=== PATIENT | female | born 1960 | race Caucasian/White ===

== ENCOUNTER 2019-03-09 17:09 | Emergency (ER) | payer OTHER ==
[~2019-03-09] VITALS: Ht 172.7 cm; Wt 97.5 kg
--- OUTSIDE RECORDS SUMMARY | 2019-03-09 17:16 | XMS REPORT | Continuity of Care Document ---
Author Organization Unknown Address Unknown Allergies There is no data. Medications There is no data. Problems There is no data. Procedures There is no data. Results There is no data. Encounters ACCT No. Visit Date/Time Discharge Status Pt. Type Provider Facility Loc./Unit Complaint [id number] 08/21/2015 16:45:56 08/21/2015 23:59:59 [facility] Outpatient Dallin Schafer
[2019-03-09] MEDS ORDERED: HYDROcodone/APAP 5 MG/325 MG (LORTAB) TAB PO ONE (17:30)
[2019-03-09] MEDS ORDERED: HYDR-4226 PO (17:47)
--- NOTE | 2019-03-09 17:47 | ED Lower Extremity ---
General Chief Complaint: Lower Extremity Stated Complaint: R KNEE INJ Nursing Triage Note: PT TO [facility] 5 BY WHEELCHAIR WITH COMPLAINT OF RIGHT LEG INJURY. PT STATES SHE WAS WALKING ON WET SIDEWALK WHEN SHE SLIPPED AND LANDED ON RIGHT KNEE. STATES SHE CANNONT BEND KNEE. Nursing Sepsis Screen: No Definite Risk Source: patient Exam Limitations: no limitations History of Present Illness Date Seen by Provider: March 09, 2019 Time Seen by Provider: 17:43 Initial Comments To ER with reports of right knee pain. This began after she slipped on a wet garrett ewalk falling onto a flexed right knee. This occurred just prior to arrival. Onset: just prior to arrival Severity: moderate Pain/Injury Location: right knee Method of Injury: fell Modifying Factors: Worse With Movement Allergies and Home Medications Allergies Coded Allergies: Penicillins (Verified Allergy, Unknown, 03/09/19) Patient Home Medication List Home Medication List Reviewed: Yes Review of Systems Constitutional: see HPI EENTM: see HPI Respiratory: no symptoms reported Cardiovascular: no symptoms reported Genitourinary: no symptoms reported Musculoskeletal: see HPI Skin: no symptoms reported Psychiatric/Neurological: No Symptoms Reported Past Oqwwuga-Gnyuwa-Elzcxn Hx Patient Social History Alcohol Use: Denies Use Recreational Drug Use: No Smoking Status: Never a Smoker Recent Foreign Travel: No Contact w/Someone Who Travel: No Recent Infectious Disease Expo: No Recent Hopitalizations: No Immunizations Up To Date Tetanus Booster (TDap): Unknown Seasonal Allergies Seasonal Allergies: No Past Medical History Surgeries: Yes (right shoulder) Orthopedic Respiratory: No Cardiac: No Neurological: No Genitourinary: No Gastrointestinal: No Musculoskeletal: No Endocrine: No HEENT: No Cancer: No Psychosocial: No Integumentary: No Blood Disorders: No Physical Exam Vital Signs Vital Signs - First Documented 03/09/19 17:09 Temp 98.5 Pulse 96 Resp 18 B/P (MAP) 132/97 (109) Pulse Ox 96 O2 Delivery Room Air Capillary Refill : Less Than 3 Seconds Height, Weight, BMI Height: 5'8.00" Weight: 215lbs. oz. 97.479064ze; BMI Method:Stated General Appearance: WD/WN, no apparent distress HEENT: PERRL/EOMI, normal ENT inspection Respiratory: no respiratory distress, no accessory muscle use Hips: bilateral hip non-tender, bilateral hip normal inspection, bilateral hip normal range of motion Legs: bilateral leg non-tender, bilateral leg normal inspection, bilateral leg normal range of motion Knees: right knee other (bruising and swelling anterior to the patella, abrasion without laceration to suggest open fracture. Unable to lift her right foot off of the bed. She is neurovascularly intact distal to this with normal sensation and motor function of the toes.) Progress/Results/Core Measures Results/Orders My Orders Orders - CAMI VALENTE APRN Hydrocodone/Apap 5/325 Tablet (Lortab 5 (03/09/19 17:30) Knee Immobilizer (03/09/19 17:18) Knee, Right, 3 Views (03/09/19 17:32) Medications Given in ED Current Medications Medications Dose Ordered Sig/Tru Route Start Time Stop Time Status Last Admin Dose Admin Acetaminophen/ Hydrocodone Bitart 1 tab ONCE ONCE PO 03/09/19 17:30 03/09/19 17:31 DC 03/09/19 17:28 1 TAB Vital Signs/I&O 03/09/19 17:09 Temp 98.5 Pulse 96 Resp 18 B/P (MAP) 132/97 (109) Pulse Ox 96 O2 Delivery Room Air Blood Pressure Mean: 109 Departure Impression Primary Impression: Patella fracture Qualified Codes: S82.041A - Displaced comminuted fracture of right patella, initial encounter for closed fracture Disposition: 01 HOME, SELF-CARE Condition: Stable Departure-Patient Inst. Decision time for Depature: 17:45 Referrals: GARY VANEGAS MD, ROBERT F DO UNKNOWN (PCP) Primary Care Physician ADARSH BARNES MD Patient Instructions: Patella Fracture Add. Discharge Instructions: 1. Wear the immobilizer at all times except when showering. Call orthopedic surgeon of your choosing tomorrow to make an appointment for follow-up within the next 1 week. Pain medication as directed. Return to ER for any concerns. All discharge instructions reviewed with patient and/or family. Voiced understanding. Scripts Hydrocodone/Acetaminophen ([place] 5-325 Tablet) 1 Each Tablet 1 TAB PO Q4H for Pain MDD 10 TABS for 7 Days, #30 TAB Prov: CAMI VALENTE APRN 03/09/19 Copy Copies To 1: WILLIAN BYRD PETER J APRN March 09, 2019 17:47
--- NOTE | 2019-03-09 17:49 | Diagnostic Imaging Report ---
CLINICAL INDICATION: Patient complains of right leg injury. Patient slipped and landed on right knee. EXAM: X-ray of the right knee, three views. COMPARISON: None. FINDINGS: There is a comminuted fracture involving the patella with a predominant horizontal fracture crossing mid portion and roughly 12 mm of distraction between the fracture fragments. There is no other fracture or dislocation seen. There is [id number] medial compartment narrowing. There is swelling anterior to the knee. IMPRESSION: There is a comminuted and distracted fracture of the patella. Results of this report were discussed with Glenn Dee APRN, via the telephone on 03/09/2019 at 1740 hours. Dictated by: Dictated on workstation # [id number]
[2019-03-09] MEDS ORDERED: TETANUS,DIPTH,PERTUSS P/F (BOOSTRIX) 0.5 ML VIAL IM ONE (18:15)
[2019-03-09 18:31] VITALS: BP 132/97
== END 2019-03-09 18:31 | disposition home or self-care (01) ==
LOC: EDUNIT# 17:09 → ER 17:13
DX: S82.041A Displaced comminuted fracture of right patella, initial encounter for closed fracture (principal); Z88.0 Allergy status to penicillin; W01.0XXA Fall on same level from slipping, tripping and stumbling without subsequent striking against object, initial encounter; X50.1XXA Overexertion from prolonged static or awkward postures, initial encounter; Y92.480 Sidewalk as the place of occurrence of the external cause
CPT/HCPCS: 73562; 90715